=== PATIENT | female | born 1970 | race Caucasian/White ===

== ENCOUNTER → 2017-12-08 | Outpatient (CLI) | payer OTHER ==
[~2017-12-08] MED LIST: IRON325 M1 PO; LEVBID0.375 MG PO; LYRICA75 MG PO; NAPROSYN500 MG PO; NICODERM CQ1 EAC1 TD; OXYCODONE HCL5 MG PO; OXYCONTIN10 MG PO; PERCOCET 10/1 TABLET PO; PROBIOTIC1 EAC1 PO; TOPAMAX50 MG PO; XARELTO10 MG PO
== END | disposition home or self-care (01) ==
LOC: CDC 11:16
DX: Z01.810 Encounter for preprocedural cardiovascular examination (principal)
CPT/HCPCS: 93000

== ENCOUNTER 2017-12-17 10:52 | Day surgery (SDC) | payer OTHER ==
[~2017-12-17] VITALS: Ht 167.6 cm; Wt 83.9 kg
[~2017-12-17 10:52] MED LIST changes: +ZANTAC75 M1 PO
[2017-12-17] MEDS ORDERED: PERCOCET 10/1 TABLET PO (11:20)
[2017-12-17 11:36] VITALS: BP 111/72
[2017-12-17 14:49] VITALS: BP 120/79
[2017-12-17 15:50] VITALS: BP 112/62
== END 2017-12-17 16:10 | disposition home or self-care (01) ==
LOC: SDC
DX: M75.121 Complete rotator cuff tear or rupture of right shoulder, not specified as traumatic (principal); M19.011 Primary osteoarthritis, right shoulder; G43.909 Migraine, unspecified, not intractable, without status migrainosus; N32.81 Overactive bladder; R12 Heartburn; Z96.653 Presence of artificial knee joint, bilateral; Z90.710 Acquired absence of both cervix and uterus; Z82.49 Family history of ischemic heart disease and other diseases of the circulatory system; Z82.61 Family history of arthritis
CPT/HCPCS: J0171; J0690; J1100; J2250; J2405; J2795; J3010; Q0175